=== PATIENT | female | born 1995 | race Two or more races ===

== ENCOUNTER 2025-03-30 23:16 | Emergency (ER) | payer OTHER ==
[~2025-03-30] VITALS: Ht 162.6 cm; Wt 61.2 kg
[2025-03-30] MEDS ORDERED: LAMICTAL150 MG PO (23:31)
[2025-03-31] MEDS ORDERED: 0.9 % SODIUM CHLORIDE 1,000 ML IV STA (01:42)
[2025-03-31 02:16] LABS: HEMATOCRIT 36.1 % (36.0-45.00); HEMOGLOBIN 12.5 g/dL (12.0-15.00); MEAN CELL VOLUME 80.4 fL (80.00-100.00); MEAN CORPUSCULAR HEMOGLOBIN 27.8 pg (27.00-32.0); MEAN CORPUSCULAR HGB CONC 34.6 g/dl (32.0-36.0); PLATELET COUNT 195 K/uL (150-450); RED BLOOD COUNT 4.49 M/uL (4.00-6.00); RED CELL DISTRIBUTION WIDTH 15.6 % (11.5-14.5)
[2025-03-31 03:07] LABS: ALBUMIN 3.5 gm/dL (3.4-5.0); BILIRUBIN TOTAL 0.17 mg/dL (0.3-1.2); CALCIUM 8.7 mg/dL (8.5-10.1); CREATININE SERUM 0.41 mg/dL (0.55-1.02); GFR 180.94; GLOBULINA 3.1 G/DL (2.4-3.5); POTASSIUM 4.08 mEq/L (3.5-5.1); TOTAL PROTEIN 6.6 gm/dL (6.4-8.2)
== END 2025-03-31 04:00 | disposition home or self-care (01) ==
LOC: ER 03-31 00:45
DX: Z34.90 Encounter for supervision of normal pregnancy, unspecified, unspecified trimester (principal); Z3A.16 16 weeks gestation of pregnancy; R56.9 Unspecified convulsions

== ENCOUNTER 2025-09-04 13:15 | Inpatient (IN) | payer OTHER ==
[~2025-09-04] VITALS: Ht 165.1 cm; Wt 71.2 kg
[~2025-09-04 13:15] MED LIST: LAMICTAL150 MG PO
[2025-09-09 14:40] VITALS: BP 117/82
[2025-09-09] MEDS ORDERED: RINGERS SOLUTION,LACTATED 1,000 ML IV SCH (16:15)
[2025-09-09] MEDS ORDERED: PRENATA CHEWAB1 EACH PO (16:53)
[2025-09-09] MEDS ORDERED: FOLIC ACID20 MG PO (16:54)
[2025-09-09 16:55] LABS: BASO % 0.3 % (0.1-1.2); EOS # 0.12 (0.04-0.54); EOS % 1.0 % (0.7-7.0); LYMPH # 2.02 (1.18-3.74); LYMPH % 17.5 % (19.3-53.1); MEAN PLATELET VOLUME 11.60 fl (9.4-12.4); MONO # 0.58 (0.24-0.82); MONO % 5.0 % (4.7-12.5); NEUT # 8.72 (1.56-6.13); NEUT % 75.9 % (34.0-71.1); RED CELL DISTRIBUTION WIDTH 14.2 % (11.6-14.4)
[2025-09-09] MEDS ORDERED: LAMOTRIGINE200 MG PO (16:55)
[2025-09-09 17:16] LABS: URINE APPEARANCE Clear; URINE BILIRRUBIN Negative (NEGATIVE); URINE BLOOD Negative; URINE COLOR Yellow; URINE GLUCOSE Negative (NEGATIVE); URINE KETONE Trace (NEGATIVE); URINE LEUKOCYTE Negative; URINE NITRATE Negative; URINE PROTEIN Negative (NEGATIVE); URINE UROBILINOGEN 0.2 E.U./dl
[2025-09-09 17:17] LABS: INR < 0.93
[2025-09-09 17:21] LABS: URINE BACTERIA 80.2 uL (0.0-1933); URINE EPITHELIAL CELLS 8.7 uL (0.0-38.8); URINE RBC 5.5 uL (0.0-20.8); URINE WBC 5.0 uL (0.0-23.2)
[2025-09-09 17:29] LABS: TYPE CELLS SQUAMOUS; URINE CAST 0.14 uL (0.0-1.40)
[2025-09-09 18:01] LABS: ALT/SGPT 26.0 U/L (12-78); AST/SGOT 23.0 U/L (15-37); BILIRUBIN TOTAL 0.52 mg/dL (0.3-1.2); BUN CREA RATIO 20.0 (7.0-25.0); CREATININE SERUM 0.46 mg/dL (0.55-1.02); GFR 157.42; GLOBULINA 3.2 G/DL (2.4-3.5); GLUCOSE FASTING 61.0 mg/dL (65-100); OSMOLALITY SERUM 274.0 MOSM/KG (275-295)
[2025-09-09] MEDS ORDERED: OXYTOCIN 20 UNITS/500ML RL PIGGYBAG IV ONE (19:42)
[2025-09-09] MEDS ORDERED: OXYTOCIN 500 ML IV SCH (20:15)
[2025-09-09 20:34] VITALS: BP 137/70
[2025-09-09 23:11] VITALS: BP 92/45
[2025-09-10] VITALS (7 sets, daily range): BP systolic 99–123; BP diastolic 50–77
[2025-09-10] MEDS ORDERED: CHLORHEXIDINE GLUCONATE 120 ML BOTTLE TOP ONE (00:45)
[2025-09-10] MEDS ORDERED: LIDOCAINE HCL 1% 10ML VIAL ONE (00:45)
[2025-09-10] MEDS ORDERED: ERYTHROMYCIN BASE OPHT 1GM EACH TUBE OP ONE (00:45)
[2025-09-10] MEDS ORDERED: OXYTOCIN 20 UNITS/1000ML RL PIGGYBAG IV ONE (00:45)
[2025-09-10] MEDS ORDERED: OXYTOCIN 1,000 ML IV SCH (01:45)
[2025-09-10] MEDS ORDERED: ACETAMINOPHEN 500 MG GEL..CAP PO PRN (01:45)
[2025-09-10 07:56] LABS: BASO % 0.2 % (0.1-1.2); EOS # 0.01 (0.04-0.54); EOS % 0.1 % (0.7-7.0); LYMPH # 1.28 (1.18-3.74); LYMPH % 9.0 % (19.3-53.1); MEAN PLATELET VOLUME 11.80 fl (9.4-12.4); MONO # 0.82 (0.24-0.82); MONO % 5.7 % (4.7-12.5); NEUT # 12.08 (1.56-6.13); NEUT % 84.6 % (34.0-71.1); RED CELL DISTRIBUTION WIDTH 14.0 % (11.6-14.4)
[2025-09-10] MEDS ORDERED: PNV,CALCIUM 72/IRON/FOLIC ACID 1 TAB TABLET PO SCH (09:00)
[2025-09-10] MEDS ORDERED: IRON/V.C/V.B12/FOLIC A/VIT. E 1 CAPL CAPLET PO SCH (17:00)
[2025-09-11 00:07] VITALS: BP 99/63; O2SAT 98
[2025-09-11 08:00] VITALS: BP 99/64
== END 2025-09-11 15:13 | disposition home or self-care (01) | DRG 807 ==
LOC: OB/GYN 09-09 15:55 → LDR 09-09 15:55 → OB/GYN 09-10 02:29 → LDR 09-11 13:15 → OB/GYN 09-11 15:13
PROVIDERS: Student in an Organized Health Care Education/Training Program; ADMIT Specialist; ATTEND Specialist
PROC: 4A1HXCZ Monitoring of Products of Conception, Cardiac Rate, External Approach (ICD-10-PCS; 2025-09-09)
PROC: 10E0XZZ Delivery of Products of Conception, External Approach (ICD-10-PCS; principal; 2025-09-10)
PROC: 0KQM0ZZ Repair Perineum Muscle, Open Approach (ICD-10-PCS; 2025-09-10)
DX: O70.1 Second degree perineal laceration during delivery (principal); Z37.0 Single live birth; Z3A.39 39 weeks gestation of pregnancy